=== PATIENT | female | born 1985 | race Caucasian/White ===

== ENCOUNTER 2024-07-18 00:01 | Emergency (ER) | payer OTHER ==
[~2024-07-18] VITALS: Ht 170.2 cm; Wt 69.4 kg
[2024-07-18 00:46] LABS: *BILIRUBIN,URIN NEGATIVE (NEGATIVE); *BLOOD, URINE NEGATIVE (NEGATIVE); *CLARITY,URINE CLEAR (CLEAR); *COLOR,URINE YELLOW (YELLOW); *KETONES,URINE 1+ (NEGATIVE); *PROTEIN,URINE NEGATIVE (NEGATIVE); *UROBILINOGEN,URINE 0.2 E.U./dl (NORMAL); LEUKOCYTE ESTERASE ,URINE NEGATIVE (NEGATIVE); NITRITE, URINE NEGATIVE (NEGATIVE); UGLUCOSE NEGATIVE (NEGATIVE)
[2024-07-18 00:58] LABS: *URINE HCG, QUAL NEGATIVE (NEGATIVE)
[2024-07-18 01:02] LABS: BACTERIA,URINE FEW /HPF (NONE SEEN); RBC,URINE 0-3 /HPF (0-3); SQUAMOUS EPITHELIAL CELL,UR MODERATE /HPF (NONE SEEN); WBC,URINE 0-3 /HPF (0-3)
[2024-07-18 01:03] LABS: MUCUS,URINE FEW /LPF (0-FEW)
[2024-07-18] MEDS ORDERED: ACETAMINOPHEN 500 MG TABLET ONE (02:19)
[2024-07-18] MEDS ORDERED: NAPROXEN 500 MG TABLET ONE (02:19)
[2024-07-18] MEDS: NAPROXEN 500 MG TABLET PO ONE (02:21)
[2024-07-18] MEDS: ACETAMINOPHEN 500 MG TABLET PO ONE (02:21)
[2024-07-18] MEDS ORDERED: NAPR-1009 PO (02:22)
[2024-07-18] MEDS ORDERED: ACET-3117 PO (02:22)
[2024-07-18] MEDS ORDERED: ONDA4TAB5 PO (02:22)
[2024-07-18 03:20] VITALS: BP 110/65; TEMP 98.6; O2SAT 99
== END 2024-07-18 03:20 | disposition home or self-care (01) ==
LOC: ER 00:07
DX: M25.522 Pain in left elbow (principal); M25.562 Pain in left knee; R10.2 Pelvic and perineal pain; Z79.899 Other long term (current) drug therapy; V49.40XA Driver injured in collision with unspecified motor vehicles in traffic accident, initial encounter; Y93.89 Activity, other specified; Y92.410 Unspecified street and highway as the place of occurrence of the external cause; Y99.8 Other external cause status
CPT/HCPCS: 70450; 71045; 72125; 72220; 73080; 73110; 84703; A4606; A4663; A9150